=== PATIENT | female | born 1995 | race Caucasian/White ===

== ENCOUNTER 2017-09-29 18:47 | Emergency (ER) | payer SELFPAY ==
[2017-09-29] MEDS: IBUPROFEN 800 MG TAB PO (20:22)
== END 2017-09-29 21:05 | disposition home or self-care (01) ==
LOC: FTE 18:47
DX: S93.602A Unspecified sprain of left foot, initial encounter (principal); X58.XXXA Exposure to other specified factors, initial encounter; Y92.9 Unspecified place or not applicable; Z87.891 Personal history of nicotine dependence
CPT/HCPCS: 73630; 73630-LT; 99283-25

== ENCOUNTER 2018-04-20 23:26 | Emergency (ER) | payer SELFPAY ==
[2018-04-21] MEDS: IPRATROPIUM (NEB) 0.5 MG/2.5 ML AMP NEB (00:51)
[2018-04-21] MEDS: ALBUTEROL 0.5% (NEB) 2.5 MG/0.5 ML AMP NEB (00:52)
[2018-04-21] MEDS: predniSONE 20 MG TAB PO (01:23)
[2018-04-21] MEDS: ALBUTEROL 0.083% (NEB) 2.5 MG/3 ML AMP NEB (02:50)
== END 2018-04-21 03:29 | disposition home or self-care (01) ==
LOC: FTE 23:26
DX: R06.2 Wheezing (principal)
CPT/HCPCS: 71045; 81025; 94640; 94644; 99283-25

== ENCOUNTER 2018-06-16 15:11 | Emergency (ER) | payer MEDICAID ==
[2018-06-16] MEDS: ALBUTEROL 0.083% (NEB) 2.5 MG/3 ML AMP NEB (16:16)
[2018-06-16] MEDS: IPRATROPIUM (NEB) 0.5 MG/2.5 ML AMP NEB (16:16)
[2018-06-16 16:24] LABS: ADD MAN DIFF? NO
[2018-06-16] MEDS: SOD CHLORIDE 0.9% 500 ML IV ×2 (16:25→18:32)
[2018-06-16 16:28] LABS: BASOPHIL # 0.1 10^3/ul (0.0-0.1); BASOPHILS % 0.4 % (0.0-2.0); EOSINOPHILS # 0.7 10^3/ul (0.0-0.5); EOSINOPHILS % 4.6 % (0.0-7.0); HEMATOCRIT 42.1 % (37.0-47.0); LYMPHOCYTES # 1.7 10^3/ul (0.8-2.9); LYMPHOCYTES % 12.2 % (15.0-51.0); MEAN CORPUSCULAR HEMOGLOBIN 27.6 pg (29.0-33.0); MEAN CORPUSCULAR HGB CONC 33.3 g/dl (32.0-37.0); MEAN PLATELET VOLUME 10.3 fl (7.4-10.4); MONOCYTE # 1.2 10^3/ul (0.3-0.9); MONOCYTES % 8.1 % (0.0-11.0); NEUTROPHIL # 10.6 10^3/ul (1.6-7.5); NEUTROPHILS % 74.3 % (39.0-77.0); PLATELET COUNT 314 10^3/UL (140-415); RED BLOOD COUNT 5.07 10^6/ul (4.20-5.40); RED CELL DISTRIBUTION WIDTH 12.8 % (11.5-14.5)
[2018-06-16 16:28] LABS: WHITE BLOOD COUNT 14.3 10^3/ul (4.8-10.8)
[2018-06-16 16:45] LABS: ANION GAP 11 (5-13); BLOOD UREA NITROGEN 10 mg/dl (7-20); CALCIUM 9.3 mg/dl (8.4-10.2); CARBON DIOXIDE 24 mmol/L (21-31); CHLORIDE 103 mmol/L (97-110); CREATININE 0.66 mg/dl (0.44-1.00); Estimated GFR > 60 mL/min (>60); GLUCOSE 93 mg/dl (70-220); POTASSIUM 4.3 mmol/L (3.5-5.1); SODIUM 138 mmol/L (135-144)
[2018-06-16] MEDS: DEXAMETHASONE 10 MG/ML 1 ML INJ IV (16:46)
[2018-06-16] MEDS: ALBUTEROL 0.083% (NEB) 2.5 MG/3 ML AMP HHN ×2 (17:20→19:54)
[2018-06-16] MEDS: IPRATROPIUM (NEB) 0.5 MG/2.5 ML AMP HHN ×2 (17:20→19:54)
[2018-06-16] MEDS: MAGNESIUM SULFATE 2 GM/50 ML 50 ML IVPB (18:43)
== END 2018-06-16 20:27 | disposition home or self-care (01) ==
LOC: FTE 15:11
DX: J45.901 Unspecified asthma with (acute) exacerbation (principal)
CPT/HCPCS: 80048; 81025; 85025; 94640; 94664; 96365; 96366; 96375; 99284-25